=== PATIENT | female | born 1955 | race Two or more races ===

== ENCOUNTER 2023-09-29 02:36 | Inpatient (IN) | payer MEDICAID ==
[2023-09-29] VITALS (15 sets, daily range): BP systolic 92–122; BP diastolic 52–92; TEMP 97–98.3; O2SAT 96–100
[~2023-09-29] VITALS: Ht 160 cm; Wt 123.8 kg
[2023-09-29] MEDS ORDERED: IOHEXOL 350 100 ML INFUS..BTL ONE (03:24)
[2023-09-29 03:39] LABS: CALCIUM 9.2 mg/dL (8.5-10.1); CARBON DIOXIDE 22 mmol/L (21-32); CHLORIDE 104 mmol/L (98-107); CREATININE 1.5 mg/dL (0.6-1.3); GLUCOSE 306 mg/dL (74-106); SODIUM SERUM 139 mmol/L (136-145); UREA NITROGEN, BLOOD 26 mg/dL (7-18)
[2023-09-29 03:40] LABS: BASOPHILS # (AUTO) 0.1 K/UL (0.0-0.2); BASOPHILS % (AUTO) 0.6 % (0.0-2.0); EOSINOPHILS # (AUTO) 0.1 K/uL (0.0-0.7); EOSINOPHILS % (AUTO) 0.8 % (0.0-7.0); HEMATOCRIT 38.6 % (31.2-41.9); HEMOGLOBIN 12.7 g/dL (10.9-14.3); LYMPHOCYTES # (AUTO) 2.1 K/uL (0.8-4.8); LYMPHOCYTES % (AUTO) 13.8 % (20.5-51.5); MEAN CORPUSCULAR HEMOGLOBIN 32.2 uug (24.7-32.8); MEAN CORPUSCULAR HGB CONC 33 g/dL (32.3-35.6); MEAN CORPUSCULAR VOLUME 97.6 fL (75.5-95.3); MONOCYTES # (AUTO) 0.9 K/uL (0.1-1.30); MONOCYTES % (AUTO) 5.8 % (0.0-11.0); NEUTROPHILS # (AUTO) 11.8 K/uL (1.8-8.9); PLATELET COUNT (AUTO) 448 K/uL (179-408); RED BLOOD CELL COUNT(AUTO) 3.96 MIL/uL (3.63-4.92); RED CELL DISTRIBUTION WIDTH 15.1 % (12.3-17.7); WHITE BLOOD COUNT (AUTO) 14.9 K/uL (3.8-11.8)
[2023-09-29 03:41] LABS: DIFFERENTIAL COMMENT 1
[2023-09-29] MEDS ORDERED: ENOXAPARIN SODIUM 100 MG/ML DISP.SYRIN SQ ONE (04:07)
[2023-09-29] MEDS: ENOXAPARIN SODIUM 100 MG/ML DISP.SYRIN SQ ONE (04:11)
[2023-09-29] MEDS ORDERED: ALTEPLASE 100 MG IV ONE (05:09)
[2023-09-29] MEDS ORDERED: LIDOCAINE HCL 1% 20 ML VIAL ONE (06:10)
[2023-09-29] MEDS ORDERED: HEPARIN/D5W DRIP 500 ML ONE (09:28)
[2023-09-29] MEDS: IV NS 1000 ML 1,000 ML IV ONE (09:28)
[2023-09-29] MEDS: IV NORMAL SALINE 500 ML BAG IV ONE (09:29)
[2023-09-29] MEDS: HEPARIN/D5W DRIP 500 ML IV PRN (09:31)
[2023-09-29] MEDS ORDERED: ONDANSETRON 4 MG/2 ML VIAL IV PRN (11:30)
[2023-09-29] MEDS ORDERED: DEXTROSE 50% 50 ML DISP.SYRIN IV PRN (11:30)
[2023-09-29] MEDS ORDERED: INSULIN REGULAR, HUMAN 300 UNIT/3 ML VIAL SQ PRN (11:30)
[2023-09-29] MEDS ORDERED: ACETAMINOPHEN 650 MG SUPP.RECT RC PRN (11:30)
[2023-09-29] MEDS ORDERED: LEVALBUTEROL HCL NEB 0.63 MG/3 ML NEBU NEB PRN (11:30)
[2023-09-29 12:07] LABS: BASOPHILS # (AUTO) 0.1 K/UL (0.0-0.2); BASOPHILS % (AUTO) 0.4 % (0.0-2.0); EOSINOPHILS % (AUTO) 0.3 % (0.0-7.0); HEMATOCRIT 35.4 % (31.2-41.9); LYMPHOCYTES # (AUTO) 1.2 K/uL (0.8-4.8); LYMPHOCYTES % (AUTO) 8.8 % (20.5-51.5); MEAN CORPUSCULAR HEMOGLOBIN 32.3 uug (24.7-32.8); MEAN CORPUSCULAR HGB CONC 34 g/dL (32.3-35.6); MEAN CORPUSCULAR VOLUME 95.5 fL (75.5-95.3); MONOCYTES # (AUTO) 0.9 K/uL (0.1-1.30); MONOCYTES % (AUTO) 6.5 % (0.0-11.0); NEUTROPHILS # (AUTO) 11.6 K/uL (1.8-8.9); PLATELET COUNT (AUTO) 391 K/uL (179-408); RED BLOOD CELL COUNT(AUTO) 3.71 MIL/uL (3.63-4.92); RED CELL DISTRIBUTION WIDTH 15.2 % (12.3-17.7); WHITE BLOOD COUNT (AUTO) 13.8 K/uL (3.8-11.8)
[2023-09-29 12:09] LABS: CALCIUM 8.7 mg/dL (8.5-10.1); CREATININE 1.1 mg/dL (0.6-1.3); DIFFERENTIAL COMMENT 1; POTASSIUM 4.4 mmol/L (3.5-5.1)
[2023-09-29 12:15] LABS: ALBUMIN 2.7 g/dL (3.4-5.0); MAGNESIUM 2.2 mg/dL (1.8-2.4); PHOSPHOROUS 3.6 mg/dL (2.5-4.9); TOTAL PROTEIN, SERUM 6.6 g/dL (6.4-8.2)
[2023-09-29] MEDS ORDERED: ASPIRIN EC 81 MG TABLET.DR PO ONE (12:54)
[2023-09-29] MEDS ORDERED: PANTOPRAZOLE SODIUM 40 MG TABLET.DR PO ONE (12:54)
[2023-09-29] MEDS ORDERED: ASPIRIN 325 MG TABLET ONE (12:56)
[2023-09-29] MEDS ORDERED: PANTOPRAZOLE SODIUM 40 MG VIAL ONE (12:56)
[2023-09-29] MEDS: PANTOPRAZOLE SODIUM 40 MG VIAL IV SCH (13:14)
[2023-09-29] MEDS: BLOOD SUGAR DIAGNOSTIC 1 EACH STRIP VI SCH (13:15)
[2023-09-29] MEDS: ASPIRIN EC 325 MG TABLET.DR PO SCH (13:15)
[2023-09-29] MEDS ORDERED: HEPARIN/D5W DRIP 500 ML IV PRN (16:00)
[2023-09-29 17:12] LABS: THYROID STIMULATING HORMONE 1.414 mIU/mL (0.358-3.740)
[2023-09-30 00:01] VITALS: BP 106/60; TEMP 98.7; O2SAT 98
[2023-10-01 09:42] LABS: ABG BASE EXCESS -4.7 mmol/L (-2.0-2.0); ABG HCO3 19.1 mmol/L (22.0-26.0); ABG PCO2 31.8 mmHg (35.0-48.0); ABG PH 7.397 (7.340-7.440); ABG PO2 136.8 mmHg (75.0-100.0); ABG SITE ALINE; ABG TOTAL HEMOGLOBIN 12.7 G/dL (12.0-16.0); AaDO2 98.8 mmHg; COHb 0.3 % (0.0-3.9); MetHb 0.3 % (0.0-1.5); O2Hb 98.2 % (94.0-97.0)
== END 2023-09-30 00:45 | disposition short-term general hospital (02) | DRG 134 ==
LOC: ER 02:43 → EDBD 02:43 → TRANSITION 09:49
PROVIDERS: ADMIT Internal Medicine; ATTEND Internal Medicine
PROC: 05HB33Z Insertion of Infusion Device into Right Basilic Vein, Percutaneous Approach (ICD-10-PCS; principal; 2023-09-29)
PROC: 03HB33Z Insertion of Infusion Device into Right Radial Artery, Percutaneous Approach (ICD-10-PCS; principal; 2023-09-29)
DX: I26.99 Other pulmonary embolism without acute cor pulmonale (principal); J96.01 Acute respiratory failure with hypoxia; N17.0 Acute kidney failure with tubular necrosis; I21.4 Non-ST elevation (NSTEMI) myocardial infarction; I50.31 Acute diastolic (congestive) heart failure; I95.9 Hypotension, unspecified; I27.29 Other secondary pulmonary hypertension; I11.0 Hypertensive heart disease with heart failure; I82.4Y1 Acute embolism and thrombosis of unspecified deep veins of right proximal lower extremity; E66.01 Morbid (severe) obesity due to excess calories; Z68.42 Body mass index [BMI] 45.0-49.9, adult; M15.9 Polyosteoarthritis, unspecified; Z96.651 Presence of right artificial knee joint; Z87.891 Personal history of nicotine dependence; Z91.148 Patient's other noncompliance with medication regimen for other reason; D72.829 Elevated white blood cell count, unspecified; R79.89 Other specified abnormal findings of blood chemistry; R00.0 Tachycardia, unspecified
CPT/HCPCS: 36415; 36600; 71045; 71275; 82803; 83605; 83690; 83735; 84100; 84443; 84484; 85025; 85730; 93005; 93307; A4663; C9113; G0378; J1644; J1650; J1815; J2997; J3490; J7040; Q9967